=== PATIENT | male | born 1960 | race Caucasian/White ===

== ENCOUNTER 2016-08-05 19:55 | Observation (INO) | payer MEDICAID ==
[~2016-08-05] VITALS: Ht 160 cm; Wt 117.0 kg
[~2016-08-05 19:55] MED LIST: ADVIL200 MG OR; ALBUTEROL2 PUFFS/17 IN; ALDACTONE 50MG50 MG PO; ATENOLOL50 MG PO; BACTRIM DS 8001 TAB PO; CARBAMAZEPINE200 M1 PO; CHOLESTEROL PILL; CHRONULAC 30ML30 ML PO; CIPRO 500MG TA500 MG PO; CITALOPRAM HYDR10 MG PO; CLARITIN10 MG PO; CORTISPORIN (GE10 M1 OT; CRESTOR20 MG PO; DEPAKOTE 250MG250 MG PO; DOXYCYCLINE HY100 M7 PO; DULCOLAX 5MG TAB5 MG PO; FLOMAX 0.4MG C0.4 MG PO; FLONASE 50 MCG16 GM; GABAPENTIN300 MG PO; HYDROCODONE1 TABLET; HYDROCODONE1 TABLET PO; KEFLEX 500MG.500 MG PO; LASIX20 MG PO; LEVAQUIN 750 M750 MG PO; LORATADINE 10MG10 M1 PO; LORTAB 5/500 501 TAB PO; MEDROL 4MG. DOSE4 MG PO; MELOXICAM15 MG PO; METFORMIN 500M500 MG PO; MOBIC15 MG PO; MUCINEX ER600 MG PO; NAMBUMETONE PO; NAPROXEN SODIU500 MG PO; OXYBUTYNIN5 MG PO; PRAVASTATIN 40M40 MG PO; PRILOSEC OTC20 MG PO; PRILOSEC20 M1 PO; PRILOSEC20 MG PO; SALMETEROL-F28 PUFFS IN; SKELAXIN800 MG PO; SPIRONOLACTONE25 MG PO; SYMBICORT1 AER IH; TEGRETOL 200MG200 MG PO; TRAMADOL 50MG T50 MG PO; TRAZODONE 50MG50 MG PO; TRAZODONE HCL50 MG PO; UROXATRAL10 MG PO; VENTOLIN H0.09 MG/AC IH; VESICARE5 MG PO; VOLTAREN75 MG PO; ZITHROMAX Z PA250 MG PO; ZITHROMAX Z-PA250 M1 PO
[2016-08-05 19:56] VITALS: BP 147/96
[2016-08-05 20:39] LABS: HEMOGLOBIN 13.1 g/dL (14.1-18.0); LYMPH % 36.1 % (10-50)
[2016-08-05 20:40] LABS: LYMPH # 1.7 K/mm3 (0.7-4.5)
[2016-08-05 21:05] LABS: BUN 27 mg/dL (7-18)
[2016-08-05 21:06] LABS: GFR (ESTIMATED) 118 ML/MIN (>60)
--- NOTE | 2016-08-05 21:10 | Emergency Room Report ---
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 N Clinical Suspician of Infection? N Mental Status: 1 - Regular (Normal Baseline) Sepsis Risk:Low Sepsis Risk Have you (or family members/close friends) recently traveled outside the [facility]? N If Yes, where/when: Have you had exposure to infectious disease within the past month? N TB? Other? Specify: Comment The patient is a poor historian. Patient complains of intermittent chest pain for 3-4 days. He says it is an ache, last 2-3 minutes at a time without associated symptoms. He says he currently has a very light pain in his chest that started a couple of minutes ago. He tells me that he had a "light heart attack" and was seen at [facility] about a year ago. He does not know whether he had an angiogram, he does not think he has any stents. He does not recall any testing since then, including stress test. His blood pressure is noted to be high and he says that he does not take any medication for blood pressure. He is a former smoker who currently uses dipping tobacco, he says that he changed brands 3 days ago and this is when his pain started. He does not take aspirin daily. 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 He says the doctor at [facility] told him that he could come back if he ever had any problems. ALLERGIES Coded Allergies: penicillin G (04/11/16) Home Medications Active Scripts Guaifenesin (Mucinex) 600 MG PO BID 7 Days Prov: 01/26/14 Reported Medications Gabapentin (Gabapentin 300MG) 300 MG PO TID METFORMIN HCL (Metformin 500MG) 500 MG PO BID Divalproex Sodium (Depakote) 250 MG PO TID TAMSULOSIN HCL (Flomax 0.4MG) 0.4 MG PO QHS PRAVASTATIN SODIUM (Pravastatin Sodium) 80 MG PO QHS Lactulose (Chronulac 20GM/30ML UDC) 30 ML PO BID #473 Meloxicam (Mobic 15MG) 15 MG PO DAILY OMEPRAZOLE MAGNESIUM (Prilosec 20MG) 20 MG PO BID Spironolactone (Aldactone 50MG Tablet) 50 MG PO DAILY CARBAMAZEPINE (Carbamazepine 200MG) 400 MG PO TID Citalopram Hydrobromide (Citalopram HBr) 10 MG PO DAILY #30 TRAZODONE HCL (Trazodone HCl) 50 MG PO QHS Ibuprofen (Advil) 200 MG OR PRN . Salmeterol 50/Fluticasone 250 (Advair 250-50 Diskus) 1 PUFF IN BID BUDESONIDE/FORMOTEROL FUMARATE (Symbicort 80-4.5 Mcg Inhaler) 2 PUFF IH BID History Medical History General CAD? No Angina: Yes [place]: Yes Hypertension? Yes Hyperlipidemia? Yes CHF? No DVT? No PE? No COPD? No Asthma? No Anemia? No GERD? Yes Gastric ulcers? No GI Bleed? No Hernia? Yes Thyroid Problems? No Hypothyroidism? No CVA? No Seizures? Yes Diabetes? Yes Insulin Dependent: No Insulin Pump: No Home FSBS? No Renal Insuffiency? No End Stage Renal Disease? No UTI? Yes Stones? No BPH? No GB Disease: No Nephritic Syndrome? No Asplenia? No Hepatitis? No Sickle Cell Disease? No Arthritis? Yes Migraines? No Cataracts? No Glaucoma? No MRSA? No HIV? No TB? No Anxiety? No Depression? No Cancer? No More? No Immunization Hx DT/Tetanus > 10 Years Ago Flu LAST YEAR Pneumonia NEVER Surgical Hx Previous Surgery?Y INGUINAL HERNIA REPAIR HEART CATH Family History Family Hx Diabetes Yes CAD Yes Hypertension Yes Hyperlipidemia No Cancer No TB No Social History Smoking Hx Smoker: Never Smoker Tobacco: Yes Type Snuff Packs/day < 1 Pack Alcohol Alcohol: No Additionial History Additional History The patient had a chemical stress test here August 2015: Normal ejection fraction of 59 percent. Decreased activity within the inferior wall on both distress and delayed images probably related to diaphragmatic attenuation. No segmental fixed defects or reversible defects evident that would indicate infarction or ischemia. Review of Systems All Other Systems Reviewed and Negative Constitutional denies fever ENT nose discharge. Respiratory denies cough, denies shortness of breath Cardiovascular chest pain Gastrointestinal denies abdominal pain, denies diarrhea, denies vomiting Physical Exam Vital Signs Vital Signs Date Time Temp Pulse Resp B/P Pulse O2 O2 Flow FiO2 Ox Delivery Rate 08/05 2124 70 14 174/99 98 08/05 2057 66 14 166/110 98 08/05 2055 68 14 166/110 98 08/05 1955 98.8 67 18 147/96 97 General Appearance obese Eye Exam - bilateral eye normal exam, bilateral eye PERRL, bilateral eye EOMI Ear, Nose, Throat hearing grossly normal, normal ENT inspection Neck normal inspection, non-tender, supple, full range of motion Respiratory Status Yes: trachea midline, chest symmetrical, non tender chest. No: respiratory distress. Lung Sounds bilateral: normal breath sounds, lungs clear. 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 No Results/Orders Laboratory Tests 08/05/162004: Sodium 139, Potassium 4.0, Chloride 102, Carbon Dioxide 32, BUN 27 H, Creatinine 0.7 L, Estimated Creat Clear 199, Estimated GFR (MDRD) 118, Glucose 86, Calcium 8.7, Total Bilirubin 0.3, AST 42 H, ALT 26, Alkaline Phosphatase 92 , Creatine Kinase 126, CK-MB (CK-2) Rel Index 1.0, CK and CKMB Interp 1.3, Troponin I < 0.02, Total Protein 7.9, Albumin 3.3 L, Globulin 4.6 H, Albumin/ Globulin Ratio 0.7 L, WBC 4.8, RBC 4.09 L, Hgb 13.1 L, Hct 38.1 L, MCV 93.2, RDW 14.5, Plt Count 161, Gran % 58.2, Gran # 2.8, Lymphocytes % 36.1, Monocytes % 5.7, Lymphocytes # 1.7, Monocytes # 0.3, PUBS MCHC 34.4, MCH 32.0 H Current Medication Orders Sig/Yandel Start time Last Medication Dose Route Stop Time Status Admin Lisinopril 10 MG ONCE ONE 08/05 2129 DC 08/05 PO 08/05 Lisinopril 0 .STK-MED ONE 08/05 2126 DC .ROUTE Aspirin 324 MG ONCE ONE 08/05 2014 DC 08/05 PO 08/05 Sodium Chloride 10 ML PRN PRN 08/05 2014 AC IV 08/06 2003 Aspirin 0 .STK-MED ONE 08/05 2004 DC .ROUTE Orders Procedure Date/time Status Decision to admit 08/05 2125 Active ELECTROCARDIOGRAM REQUEST 08/05 2004 Active CHEST(2 VIEWS-NOT PORTABLE) 08/05 2004 Active IV SALINE LOCK 08/05 2004 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 No infiltrate, pneumothorax, pleural effusion, or wide mediastinum. Progress - 9:25 PM:I have discussed the case with Dr. Smims who agrees to admit the patient to the hospital. We discussed the patient's clinical information, including history, exam, laboratory and radiology results and ED course. Per hospital procedure, I will write temporary bridge inpatient orders on the patient. Specific orders requested by the admitting physician: Lisinopril 10 mg now, serial cardiac enzymes, observation Departure Departure Disposition Still a Patient Clinical Impression Primary Impression: Precordial chest pain Secondary Impressions: Hypertension Qualifiers: Hypertension type: essential hypertension Qualified Code: I10 - Essential (primary) hypertension Condition STABLE Referrals Neri Simms MD (Family) ED Critical Care Critical Care No at [phone]
--- NOTE | 2016-08-05 21:10 | Emergency Room Report ---
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 N Clinical Suspician of Infection? N Mental Status: 1 - Regular (Normal Baseline) Sepsis Risk:Low Sepsis Risk Have you (or family members/close friends) recently traveled outside the [facility]? N If Yes, where/when: Have you had exposure to infectious disease within the past month? N TB? Other? Specify: Comment The patient is a poor historian. Patient complains of intermittent chest pain for 3-4 days. He says it is an ache, last 2-3 minutes at a time without associated symptoms. He says he currently has a very light pain in his chest that started a couple of minutes ago. He tells me that he had a "light heart attack" and was seen at [facility] about a year ago. He does not know whether he had an angiogram, he does not think he has any stents. He does not recall any testing since then, including stress test. His blood pressure is noted to be high and he says that he does not take any medication for blood pressure. He is a former smoker who currently uses dipping tobacco, he says that he changed brands 3 days ago and this is when his pain started. He does not take aspirin daily. 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 He says the doctor at [facility] told him that he could come back if he ever had any problems. ALLERGIES Coded Allergies: penicillin G (04/11/16) Home Medications Active Scripts Guaifenesin (Mucinex) 600 MG PO BID 7 Days Prov: 01/26/14 Reported Medications Gabapentin (Gabapentin 300MG) 300 MG PO TID METFORMIN HCL (Metformin 500MG) 500 MG PO BID Divalproex Sodium (Depakote) 250 MG PO TID TAMSULOSIN HCL (Flomax 0.4MG) 0.4 MG PO QHS PRAVASTATIN SODIUM (Pravastatin Sodium) 80 MG PO QHS Lactulose (Chronulac 20GM/30ML UDC) 30 ML PO BID #473 Meloxicam (Mobic 15MG) 15 MG PO DAILY OMEPRAZOLE MAGNESIUM (Prilosec 20MG) 20 MG PO BID Spironolactone (Aldactone 50MG Tablet) 50 MG PO DAILY CARBAMAZEPINE (Carbamazepine 200MG) 400 MG PO TID Citalopram Hydrobromide (Citalopram HBr) 10 MG PO DAILY #30 TRAZODONE HCL (Trazodone HCl) 50 MG PO QHS Ibuprofen (Advil) 200 MG OR PRN . Salmeterol 50/Fluticasone 250 (Advair 250-50 Diskus) 1 PUFF IN BID BUDESONIDE/FORMOTEROL FUMARATE (Symbicort 80-4.5 Mcg Inhaler) 2 PUFF IH BID History Medical History General CAD? No Angina: Yes [place]: Yes Hypertension? Yes Hyperlipidemia? Yes CHF? No DVT? No PE? No COPD? No Asthma? No Anemia? No GERD? Yes Gastric ulcers? No GI Bleed? No Hernia? Yes Thyroid Problems? No Hypothyroidism? No CVA? No Seizures? Yes Diabetes? Yes Insulin Dependent: No Insulin Pump: No Home FSBS? No Renal Insuffiency? No End Stage Renal Disease? No UTI? Yes Stones? No BPH? No GB Disease: No Nephritic Syndrome? No Asplenia? No Hepatitis? No Sickle Cell Disease? No Arthritis? Yes Migraines? No Cataracts? No Glaucoma? No MRSA? No HIV? No TB? No Anxiety? No Depression? No Cancer? No More? No Immunization Hx DT/Tetanus > 10 Years Ago Flu LAST YEAR Pneumonia NEVER Surgical Hx Previous Surgery?Y INGUINAL HERNIA REPAIR HEART CATH Family History Family Hx Diabetes Yes CAD Yes Hypertension Yes Hyperlipidemia No Cancer No TB No Social History Smoking Hx Smoker: Never Smoker Tobacco: Yes Type Snuff Packs/day < 1 Pack Alcohol Alcohol: No Additionial History Additional History The patient had a chemical stress test here August 2015: Normal ejection fraction of 59 percent. Decreased activity within the inferior wall on both distress and delayed images probably related to diaphragmatic attenuation. No segmental fixed defects or reversible defects evident that would indicate infarction or ischemia. Review of Systems All Other Systems Reviewed and Negative Constitutional denies fever ENT nose discharge. Respiratory denies cough, denies shortness of breath Cardiovascular chest pain Gastrointestinal denies abdominal pain, denies diarrhea, denies vomiting Physical Exam Vital Signs Vital Signs Date Time Temp Pulse Resp B/P Pulse O2 O2 Flow FiO2 Ox Delivery Rate 08/05 2124 70 14 174/99 98 08/05 2057 66 14 166/110 98 08/05 2055 68 14 166/110 98 08/05 1955 98.8 67 18 147/96 97 General Appearance obese Eye Exam - bilateral eye normal exam, bilateral eye PERRL, bilateral eye EOMI Ear, Nose, Throat hearing grossly normal, normal ENT inspection Neck normal inspection, non-tender, supple, full range of motion Respiratory Status Yes: trachea midline, chest symmetrical, non tender chest. No: respiratory distress. Lung Sounds bilateral: normal breath sounds, lungs clear. 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 No Results/Orders Laboratory Tests 08/05/162004: Sodium 139, Potassium 4.0, Chloride 102, Carbon Dioxide 32, BUN 27 H, Creatinine 0.7 L, Estimated Creat Clear 199, Estimated GFR (MDRD) 118, Glucose 86, Calcium 8.7, Total Bilirubin 0.3, AST 42 H, ALT 26, Alkaline Phosphatase 92 , Creatine Kinase 126, CK-MB (CK-2) Rel Index 1.0, CK and CKMB Interp 1.3, Troponin I < 0.02, Total Protein 7.9, Albumin 3.3 L, Globulin 4.6 H, Albumin/ Globulin Ratio 0.7 L, WBC 4.8, RBC 4.09 L, Hgb 13.1 L, Hct 38.1 L, MCV 93.2, RDW 14.5, Plt Count 161, Gran % 58.2, Gran # 2.8, Lymphocytes % 36.1, Monocytes % 5.7, Lymphocytes # 1.7, Monocytes # 0.3, PUBS MCHC 34.4, MCH 32.0 H Current Medication Orders Sig/Yandel Start time Last Medication Dose Route Stop Time Status Admin Lisinopril 10 MG ONCE ONE 08/05 2129 DC 08/05 PO 08/05 Lisinopril 0 .STK-MED ONE 08/05 2126 DC .ROUTE Aspirin 324 MG ONCE ONE 08/05 2014 DC 08/05 PO 08/05 Sodium Chloride 10 ML PRN PRN 08/05 2014 AC IV 08/06 2003 Aspirin 0 .STK-MED ONE 08/05 2004 DC .ROUTE Orders Procedure Date/time Status Decision to admit 08/05 2125 Active ELECTROCARDIOGRAM REQUEST 08/05 2004 Active CHEST(2 VIEWS-NOT PORTABLE) 08/05 2004 Active IV SALINE LOCK 08/05 2004 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 No infiltrate, pneumothorax, pleural effusion, or wide mediastinum. Progress - 9:25 PM:I have discussed the case with Dr. Simms who agrees to admit the patient to the hospital. We discussed the patient's clinical information, including history, exam, laboratory and radiology results and ED course. Per hospital procedure, I will write temporary bridge inpatient orders on the patient. Specific orders requested by the admitting physician: Lisinopril 10 mg now, serial cardiac enzymes, observation Departure Departure Disposition Still a Patient Clinical Impression Primary Impression: Precordial chest pain Secondary Impressions: Hypertension Qualifiers: Hypertension type: essential hypertension Qualified Code: I10 - Essential (primary) hypertension Condition STABLE Referrals Neri Simms MD (Family) ED Critical Care Critical Care No at [phone]
[2016-08-05 22:20] VITALS: BP 147/97
[2016-08-05 22:38] VITALS: BP 147/97
[2016-08-05] MEDS ORDERED: OXYBUTYNIN CHLOR5 MG PO (23:08)
[2016-08-06] VITALS (8 sets, daily range): BP systolic 136–164; BP diastolic 73–97
--- NOTE | 2016-08-06 04:30 | RADIOLOGY REPORT PS360 ---
CHEST(2 VIEWS-NOT PORTABLE) HISTORY: C/O CHEST PAIN COMPARISON: 05/03/2014 FINDINGS: The cardiomediastinal silhouette and pulmonary vascularity are within normal limits. The lungs are clear without infiltrates, suspicious nodules, or pleural effusions. There is ankylosis of the thoracic spine. IMPRESSION: No change with no acute finding
--- NOTE | 2016-08-06 07:12 | PHARMACY CLINIC NOTE ---
Patient Demographics Patient Demographics Admission date: 08/05/16 Date: 08/06/16 Time: 0711 Allergies Coded Allergies: penicillin G (04/11/16) HEIGHT- FT: 5 IN: 3.00 K.028 VTE General Information Labs: Laboratory Tests 08/05 2004 Hematology Hgb (14.1 - 18.0 g/dL) 13.1 L Hct (42.0 - 52.0 %) 38.1 L Plt Count (142 - 424 K/mm3) 161 Disclaimer The following section includes nursing documentation that has been pulled in for pharmacy review. Patient's VTE score: 2 Patient's VTE Risk: VERY LOW RISK Clinical trial participant? No VTE prophylaxis [id number] VTE prophylaxis ordered? Yes Type of prophylaxis/treatment: ADRIEN at 0712
--- NOTE | 2016-08-06 08:35 | HISTORY AND PHYSICAL REPORT ---
Demographics: Admit date: 08/05/16 Chief complaint: Chest pain PRIMARY DIAGNOSIS: CHEST PAIN Allergies: Coded Allergies: penicillin G (04/11/16) History of present illness: History of present illness: 55-year-old white male who suffers from morbid obesity and chronic nicotine abuse,'s previously with cigarettes and now with chewing tobacco. He gives a history of 3 weeks of intermittent sharp chest pain that occasionally causes him some sweating and dyspnea, originally attributed this to switching chewing tobacco brans and using a higher menthol content in a new [employer] brand. However, this continued to bother him and he came to the emergency department last night. Workup in the ER was negative, but given his mild intellectual disability and poor recollection of historical details and a somewhat equivocal stress test in August of last year, he was admitted for rule out myocardial infarction and further diagnostic testing. This morning he feels well, exam is essentially unremarkable except for his obesity and somewhat compromised personal hygiene. Plan will be to admit for cardiology consult for risk stratification evaluation and cardiac catheterization evaluation. Past medical history: Family HX Diabetes Yes CAD Yes Hypertension Yes Hyperlipidemia No Cancer No TB No Immunization HX DT/Tetanus > 10 Years Ago Flu 2015-FSN Pneumonia NEVER Other SAID HE THINKS HE HAD THE FLU SHOT TB Test in last year No General CAD? No Angina: Yes [place]: Yes Hypertension? Yes Hyperlipidemia? Yes CHF? No DVT? No PE? No COPD? No Asthma? No Anemia? No GERD? Yes Gastric ulcers? No GI Bleed? No Hernia? Yes Thyroid Problems? No Hypothyroidism? No CVA? No Seizures? Yes Diabetes? Yes Insulin Dependent: No Insulin Pump: No Home FSBS? No Renal Insuffiency? No UTI? Yes Stones? No BPH? No GB Disease: No Nephritic Syndrome? No Asplenia? No Hepatitis? No Sickle Cell Disease? No Arthritis? Yes Migraines? No Cataracts? No Glaucoma? No MRSA? No HIV? No TB? No Anxiety? No Depression? No Cancer? No More? No Past Surgical HX Previous Surgery?Y INGUINAL HERNIA REPAIR HEART CATH Current home meds: Active Scripts Guaifenesin (Mucinex) 600 MG PO BID 7 Days Prov: 01/26/14 Reported Medications OXYBUTYNIN CHLORIDE (Oxybutynin 5MG Tablet) 5 MG PO DAILY Gabapentin (Gabapentin 300MG) 300 MG PO TID METFORMIN HCL (Metformin 500MG) 500 MG PO BID Divalproex Sodium (Depakote) 250 MG PO TID TAMSULOSIN HCL (Flomax 0.4MG) 0.4 MG PO QHS PRAVASTATIN SODIUM (Pravastatin Sodium) 80 MG PO QHS Lactulose (Chronulac 20GM/30ML UDC) 30 ML PO BID #473 Meloxicam (Mobic 15MG) 15 MG PO DAILY OMEPRAZOLE MAGNESIUM (Prilosec 20MG) 20 MG PO BID Spironolactone (Aldactone 50MG Tablet) 50 MG PO DAILY CARBAMAZEPINE (Carbamazepine 200MG) 400 MG PO TID Citalopram Hydrobromide (Citalopram HBr) 10 MG PO DAILY #30 TRAZODONE HCL (Trazodone HCl) 50 MG PO QHS Ibuprofen (Advil) 200 MG OR PRN PAIN Salmeterol 50/Fluticasone 250 (Advair 250-50 Diskus) 1 PUFF IN BID BUDESONIDE/FORMOTEROL FUMARATE (Symbicort 80-4.5 Mcg Inhaler) 2 PUFF IH BID Social Hx: Smoking HX Tobacco Yes Type SNUFF Packs/day < 1 PACK Alcohol Alcohol: No Hx of Drug Use Drug Use? No Patien't marital status is single Patient's support system is fair Review of systems: Constitutional malaise, weakness. No: fever. Respiratory No: no symptoms reported. Cardiovascular see HPI Gastrointestinal/Abdominal No no symptoms reported Genitourinary No: no symptoms reported. Musculoskeletal No: no symptoms reported. Neurological No: see HPI. Exam: Lab data for last 24 hours: Laboratory Tests 08/06/16 0530: Troponin I < 0.02 08/06/16 0115: Troponin I < 0.02 08/05/16 2005: Sodium 139, Potassium 4.0, Chloride 102, Carbon Dioxide 32, BUN 27 H, Creatinine 0.7 L, Estimated Creat Clear 199, Estimated GFR (MDRD) 118, Glucose 86, Calcium 8.7, Total Bilirubin 0.3, AST 42 H, ALT 26, Alkaline Phosphatase 92 , Creatine Kinase 126, CK-MB (CK-2) Rel Index 1.0, CK and CKMB Interp 1.3, Troponin I < 0.02, Total Protein 7.9, Albumin 3.3 L, Globulin 4.6 H, Albumin/ Globulin Ratio 0.7 L, WBC 4.8, RBC 4.09 L, Hgb 13.1 L, Hct 38.1 L, MCV 93.2, RDW 14.5, Plt Count 161, Gran % 58.2, Gran # 2.8, Lymphocytes % 36.1, Monocytes % 5.7, Lymphocytes # 1.7, Monocytes # 0.3, PUBS MCHC 34.4, MCH 32.0 H Admission vital signs: 1ST Vital Signs Result Date Time Pulse Ox 97 08/05 1955 B/P 147/96 08/05 1955 Temp 98.8 08/05 1955 Pulse 67 08/05 1955 Resp 18 08/05 1955 O2 Delivery ROOM AIR 08/05 2219 Additional information: Patient's pleasant, alert, oriented 2, a little fuzzy about the date. ENT exam clear except for evidence of significant chewing tobacco habit. Lungs clear bilaterally, heart rate regular. No sternal pain. Abdomen obese. Trace ankle edema as previously noted. No skin breakdown or rash. Able to move arms and legs equally. Plan: Problem List 1. Precordial chest pain Plan: Admit to hospital. Cardiology consultation. Given patient's equivocal stress test less than one year ago and risk factors I think cardiac catheterization consideration is warranted. at 0834
--- NOTE | 2016-08-06 09:52 | CONSULT NOTE ---
Standard Demographics Patient Demo Date of Consultation: 08/06/16 Referring Provider: Neri Simms MD Reason for Consultation: Angina pectoris PRIMARY DIAGNOSIS: CHEST PAIN Problem list Problem list: 1. Diabetes mellitus, insulin requiring. 2. HTN 3. Hyperlipidemia 4. Mild Mental incapacity 5. Tobacco use, remote cigarette use. Now uses smokeless tobacco. 6. History of seizures 7. Cirrhosis of liver 8. Hyperlipidemia 9. Remote SD per patient. Previous workup/treatment in [place]. Records unavailable. History of present illness: History of present illness: 55-year-old white male who suffers from morbid obesity and chronic nicotine abuse,'s previously with cigarettes and now with chewing tobacco. He gives a history of 3 weeks of intermittent sharp chest pain that occasionally causes him some sweating and dyspnea, originally attributed this to switching chewing tobacco brans and using a higher menthol content in a new Skoal brand. However, this continued to bother him and he came to the emergency department last night. Workup in the ER was negative, but given his mild intellectual disability and poor recollection of historical details and a somewhat equivocal stress test in August of last year, he was admitted for rule out myocardial infarction and further diagnostic testing. This morning he feels well, exam is essentially unremarkable except for his obesity and somewhat compromised personal hygiene. Plan will be to admit for cardiology consult for risk stratification evaluation and cardiac catheterization evaluation. The above per Dr. Simms. One month history of intermittent chest pain and SOA that the patient is unable to quantify or elaborate on exacerbating or alleviating factors. Past Medical History: General: Hypertension Yes CVA No Seizures Yes TB No COPD No Asthma No Diabetes Yes Insulin Dependent No Insulin Pump No Angina Yes SD Yes Hyperlipidemia Yes Urinary Yes Cancer No Rheumatic H.D. No Ulcers No MRSA No GB Disease No Other PROSTATE, CIRRHOSIS Past Surgical HX: Previous Surgery?Y INGUINAL HERNIA REPAIR HEART CATH Allergies Coded Allergies: penicillin G (04/11/16) Home medications: Discontinued Scripts Guaifenesin (Mucinex) 600 MG PO BID 7 Days Prov: 01/26/14 DC: 08/06/16 1202 Clarified RX Order Reported Medications Divalproex Sodium (Depakote) 1,000 MG PO QAM Divalproex Sodium (Depakote) 750 MG PO DAILY @ 1200 Divalproex Sodium (Depakote) 750 MG PO QHS OLOPATADINE HCL (Pataday OPHTH) 1 DROP OP DAILY AZELASTINE HCL (Azelastine Hydrochloride) 1 DROP OP BID EPINASTINE HCL (Elestat) 1 DROP OP BID Albuterol Sulfate (Ventolin Hfa) 2 PUFFS IH QIDP PRN COPD Nicotine (Nicoderm Cq) 14 MG TD DAILY Fluticasone Propionate (Flonase 50 Mcg Nasal Sawyer) 2 SPRAY NA DAILY Pravastatin Sodium (Pravachol) 80 MG PO QHS TAMSULOSIN HCL (Flomax 0.4MG) 0.4 MG PO DAILY Gabapentin (Gabapentin 300MG) 600 MG PO QAM Gabapentin 300 MG PO DAILY @ NOON Gabapentin 600 MG PO QHS Loratadine (Claritin) 10 MG PO DAILY Petrolatum (Vaseline Oint; 30GM Generic) 1 PITER TP BID OXYBUTYNIN CHLORIDE (Oxybutynin 5MG Tablet) 5 MG PO DAILY METFORMIN HCL (Metformin 500MG) 500 MG PO BID Lactulose (Chronulac 20GM/30ML UDC) 30 ML PO BID #473 Meloxicam (Mobic 15MG) 15 MG PO DAILY OMEPRAZOLE MAGNESIUM (Prilosec 20MG) 20 MG PO BID Spironolactone (Aldactone 50MG Tablet) 50 MG PO DAILY CARBAMAZEPINE (Carbamazepine 200MG) 400 MG PO TID Citalopram Hydrobromide (Citalopram HBr) 10 MG PO DAILY #30 TRAZODONE HCL (Trazodone HCl) 50 MG PO QHS Discontinued Reported Medications Gabapentin (Gabapentin 300MG) 300 MG PO TID Divalproex Sodium (Depakote) 250 MG PO TID TAMSULOSIN HCL (Flomax 0.4MG) 0.4 MG PO QHS Ibuprofen (Advil) 200 MG OR PRN PAIN Salmeterol 50/Fluticasone 250 (Advair 250-50 Diskus) 1 PUFF IN BID BUDESONIDE/FORMOTEROL FUMARATE (Symbicort 80-4.5 Mcg Inhaler) 2 PUFF IH BID Current Medications: Current Medications Fentanyl Citrate 25 MCG PRN PRN IV Fentanyl Citrate 50 MCG PRN PRN IV Flumazenil 0.2 MG PRN PRN IV Heparin Sodium/Sodium Chloride 3,000 UNITS PRN PRN IV Lidocaine HCl 20 ML ONCE ONE IJ (DC) Midazolam HCl 1 MG PRN PRN IV Midazolam HCl 1 MG PRN PRN IV Naloxone HCl 0.4 MG R1HXKICU PRN IV Nitroglycerin 800 MCG PRN PRN IV Verapamil HCl 5 MG PRN PRN IV Nicotine 0 .STK-MED ONE TD (DC) Diagnostic Test (Pha) 1 EACH W/MEALS&HS FS Insulin Human [rDNA origin] SEE ADMIN CRITERIA FOR MEDIUM INTENSITY W/MEALS&HS SC Influenza Virus Vaccine Quadrival 0.5 ML PRN PRN IM Nicotine 21 MG DAILYP PRN TD Sodium Chloride 10 ML PRN PRN IV Lisinopril 10 MG ONCE ONE PO (DC) Lisinopril 0 .STK-MED ONE .ROUTE (DC) Aspirin 324 MG ONCE ONE PO (DC) Sodium Chloride 10 ML PRN PRN IV Aspirin 0 .STK-MED ONE .ROUTE (DC) Immunization HX DT/Tetanus > 10 Years Flu 2015-FSN Pneumonia NEVER Other SAID HE THINKS HE HAD THE FLU SHOT TB Test in last year No Family history Family HX Diabetes Yes CAD Yes Hypertension Yes Hyperlipidemia No Cancer No TB No Social Hx: Smoking HX Tobacco Yes Type SNUFF Packs/day < 1 PACK Alcohol Alcohol: No Hx of Drug Use Drug Use? No Patien't marital status is single Patient's support system is fair Review of systems: Constitutional No: no symptoms reported. Respiratory see HPI, SOB with excertion. Cardiovascular see HPI, chest pain Gastrointestinal/Abdominal No no symptoms reported Genitourinary No: no symptoms reported. Musculoskeletal No: no symptoms reported. Neurological Yes: seizure disorder. Exam: Admission Vital Signs: 1ST Vital Signs Result Date Time Pulse Ox 97 08/05 1955 B/P 147/96 08/05 1955 Temp 98.8 08/05 1955 Pulse 67 08/05 1955 Resp 08/05 O2 Delivery ROOM AIR 08/05 2219 Last Vital Signs: Vital Signs Result Date Time Pulse Ox 97 08/06 804 B/P 164/73 08/06 804 O2 Delivery ROOM AIR 08/06 804 Temp 97.7 08/06 804 Pulse 64 08/06 08 Resp 20 01/19 0805 Exam General appearance: alert, awake, no acute distress Neck: no carotid bruit, no JVD Cardiovascular: regular rate & rhythm, no murmur Respiratory: clear to auscultation, good air movement ABD: soft, no tenderness Extremities: moves all, no peripheral edema Neuro: alert, intact, oriented, speech clear Laboratory data: Laboratory Tests 08/06/16 0530: Troponin I < 0.02 08/06/16 0115: Troponin I < 0.02 08/05/16 2005: Sodium 139, Potassium 4.0, Chloride 102, Carbon Dioxide 32, BUN 27 H, Creatinine 0.7 L, Estimated Creat Clear 199, Estimated GFR (MDRD) 118, Glucose 86, Calcium 8.7, Total Bilirubin 0.3, AST 42 H, ALT 26, Alkaline Phosphatase 92 , Creatine Kinase 126, CK-MB (CK-2) Rel Index 1.0, CK and CKMB Interp 1.3, Troponin I < 0.02, Total Protein 7.9, Albumin 3.3 L, Globulin 4.6 H, Albumin/ Globulin Ratio 0.7 L, WBC 4.8, RBC 4.09 L, Hgb 13.1 L, Hct 38.1 L, MCV 93.2, RDW 14.5, Plt Count 161, Gran % 58.2, Gran # 2.8, Lymphocytes % 36.1, Monocytes % 5.7, Lymphocytes # 1.7, Monocytes # 0.3, PUBS MCHC 34.4, MCH 32.0 H Plan: Assessment: 1. Chest pain/SOA in patient with long-standing diabetes, HTN, Hyperlipidemia and previous SD per patient with equivocal stress test last year. Will proceed with cardiac cath to further evaluate this patient with high pre-test likelihood for recurrent ASHD. TONEY score of 4 (previous SD, CRF's, recurrent chest pain, ASA use). 2. Diabetes 3. HTN, elevated BP on admission. Will adjust meds after cardiac cath. 4. Hyperlipidemia, on statin. 5. Reduced mental capacity 6. Allergy to Penicillin Recommendations: Discussed with Dr. Harrington. See above. at 0734
[2016-08-06] MEDS ORDERED: DEPAKOTE 250MG250 MG PO ×3 (10:16→10:19)
[2016-08-06] MEDS ORDERED: PATADAY 2.5 ML2.5 ML OP (10:23)
[2016-08-06] MEDS ORDERED: AZELASTINE HYDRO6 ML OP (10:27)
[2016-08-06] MEDS ORDERED: ELESTAT5 ML OP (10:29)
[2016-08-06] MEDS ORDERED: VENTOLIN H0.09 MG/Ac IH (10:33)
[2016-08-06] MEDS ORDERED: NICODERM C14 MG/24 H TD (10:36)
[2016-08-06] MEDS ORDERED: FLONASE 50 MCG16 GM (10:37)
[2016-08-06] MEDS ORDERED: PRAVACHOL80 M1 PO (10:51)
[2016-08-06] MEDS ORDERED: FLOMAX 0.4MG C0.4 MG PO (10:54)
[2016-08-06] MEDS ORDERED: GABAPENTIN300 MG PO (10:56)
[2016-08-06] MEDS ORDERED: GABAPENTIN300 M1 PO ×2 (10:56→10:58)
[2016-08-06] MEDS ORDERED: CLARITIN LIQUI-10 MG PO (10:59)
[2016-08-06] MEDS ORDERED: WHITE PETROLATUM TP (11:03)
--- NOTE | 2016-08-06 13:07 | RADIOLOGY REPORT PS360 ---
CARDIAC CATHETERIZATION DATE OF CATHETERIZATION:08/06/2016 12:56 PM PROCEDURES: 1. Left heart catheterization 2. Left ventriculogram 3. Selective coronary angiogram INDICATION FOR TEST: 1. Unstable angina Informed consent was obtained prior to the procedure. COMPLICATIONS: None ESTIMATED BLOOD LOSS: Less than 10 ml. TECHNIQUE: One percent lidocaine was used to anesthetize the right anterior aspect of the right wrist. The right radial artery was accessed via the Seldinger technique and a 5 Wolof hydrophilic sheath was placed in the right radial artery. An arterial cocktail using verapamil and nitroglycerin was administered intra-arterially. A Aditi catheter was used to perform left heart catheterization left ventriculogram and selective coronary angiographic. At the end of the procedure the sheath was removed good hemostasis was achieved using TR band patient was transferred to the postop holding area in stable condition ANGIOGRAPHIC RESULTS: 1. The left main artery normal 2. The left anterior descending artery has proximal luminal irregularities with an eccentric 10% stenosis with mild luminal irregularities throughout the mid segment 3. The circumflex artery is a large codominant vessel and has mild luminal irregularities no stenosis greater than 10% 4. The right coronary artery is a codominant vessel and has mild vascular ectasia throughout the proximal to mid segment with no stenosis greater than 10% 5. The WARD ventriculogram reveals normal 65% 6. The left ventricular end-diastolic pressure 10 millimeters mercury IMPRESSION: 1. Mild nonflow limiting luminal irregularities throughout the coronary arteries as described above 2. Normal ejection fraction 3. Normal left ventricular end-diastolic pressure PLAN: 1. Medical management 2. Daily baby aspirin 3. LDL less than 70
--- NOTE | 2016-08-06 17:15 | DISCHARGE SUMMARY STANDARD ---
Demographics Admit date: 08/05/16 Discharge date: 08/06/16 History of present illness History of present illness 55-year-old white male who suffers from morbid obesity and chronic nicotine abuse,'s previously with cigarettes and now with chewing tobacco. He gives a history of 3 weeks of intermittent sharp chest pain that occasionally causes him some sweating and dyspnea, originally attributed this to switching chewing tobacco brans and using a higher menthol content in a new Skoal brand. However, this continued to bother him and he came to the emergency department last night. Workup in the ER was negative, but given his mild intellectual disability and poor recollection of historical details and a somewhat equivocal stress test in August of last year, he was admitted for rule out myocardial infarction and further diagnostic testing. This morning he feels well, exam is essentially unremarkable except for his obesity and somewhat compromised personal hygiene. Plan will be to admit for cardiology consult for risk stratification evaluation and cardiac catheterization evaluation. The above per Dr. Simms. One month history of intermittent chest pain and SOA that the patient is unable to quantify or elaborate on exacerbating or alleviating factors. Hospital Course Hospital Course: Patient was taken to the catheterization lab. Coronary angiogram revealed mild non-flow limiting luminal irregularities throughout the coronary arteries. EF was normal. He is feeling well with no further chest pain through the day. Discharge home to FU with Dr. Simms next week. FU with Dr. Harrington in one week. Radial cath discharge instructions per Dr. Harrington Discharge diagnoses Problem List 1. Precordial chest pain Medications Medications: Discharge meds are as noted. Follow up Follow up in office in: 7 DAYS with: Neri Simms MD at [id number]
== END 2016-08-06 17:46 | disposition home or self-care (01) ==
LOC: ER 19:55 → 2ND 21:28 → ER 21:28 → 2ND 21:30
PROVIDERS: Emergency Medicine; Internal Medicine
PROC: B2111ZZ Fluoroscopy of Multiple Coronary Arteries using Low Osmolar Contrast (ICD-10-PCS; 2016-08-06)
PROC: B2151ZZ Fluoroscopy of Left Heart using Low Osmolar Contrast (ICD-10-PCS; 2016-08-06)
PROC: 4A023N7 Measurement of Cardiac Sampling and Pressure, Left Heart, Percutaneous Approach (ICD-10-PCS; principal; 2016-08-06 12:15)
DX: I25.110 Atherosclerotic heart disease of native coronary artery with unstable angina pectoris (principal); R07.9 Chest pain, unspecified; Z72.0 Tobacco use; E11.9 Type 2 diabetes mellitus without complications; I10 Essential (primary) hypertension
CPT/HCPCS: C1725; C1769; C1887; G0378; J1644; Q9967

== ENCOUNTER → 2017-02-23 | Outpatient (CLI) | payer MEDICAID ==
[~2017-02-23] MED LIST changes: +AZELASTINE HYDRO6 ML OP; +CLARITIN LIQUI-10 MG PO; +ELESTAT5 ML OP; +GABAPENTIN300 M1 PO; +NICODERM C14 MG/24 H TD; +OXYBUTYNIN CHLOR5 MG PO; +PATADAY 2.5 ML2.5 ML OP; +PRAVACHOL80 M1 PO; +VENTOLIN H0.09 MG/Ac IH; +WHITE PETROLATUM TP
--- NOTE | 2017-02-23 16:21 | RADIOLOGY REPORT PS360 ---
HIP RT 2-3V W/PELVIS IF PERFOR HISTORY: RT HIP PAIN ORDERING PHYSICIAN: Geno Mcdonough APRN PATIENT AGE: 56 years COMPARISON: To 717 FINDINGS: There are mild to moderate osteoarthritic changes of the right hip with decrease in joint space and osteophyte formation. There is an old fracture versus ununited ossification center at the greater trochanter superiorly unchanged. No acute fracture or dislocation. No lytic or blastic change. IMPRESSION: 1. Osteoarthritis with no change and no acute finding compared to 2 7 17. 2. Old fracture versus accessory center of ossification center at the greater trochanter
== END ==
LOC: RAD 15:17
DX: M25.551 Pain in right hip (principal)

== ENCOUNTER → 2017-05-03 | Outpatient (CLI) | payer MEDICAID ==
[2017-05-03 12:31] LABS: LYMPH # 1.2 K/mm3 (0.7-4.5); LYMPH % 27.9 % (10-50)
[2017-05-03 12:40] LABS: HEMOGLOBIN 12.6 g/dL (14.1-18.0)
[2017-05-03 13:27] LABS: BUN 33 mg/dL (7-18)
[2017-05-03 13:53] LABS: PROSTATE-SPECIFIC AG SCREEEN 0.3 ng/mL (0.0-4.0)
[2017-05-03 13:58] LABS: GFR (ESTIMATED) 140 ML/MIN (>60)
== END ==
LOC: LAB 12:01
PROVIDERS: Nurse Practitioner Family
DX: I10 Essential (primary) hypertension (principal); R35.1 Nocturia; G40.909 Epilepsy, unspecified, not intractable, without status epilepticus
CPT/HCPCS: G0103